=== PATIENT | male | born 1995 | race Caucasian/White ===

== ENCOUNTER 2020-07-26 07:45 | Emergency (ER) | payer OTHER ==
[~2020-07-26] VITALS: Ht 182.9 cm; Wt 156.4 kg
[2020-07-26] MEDS ORDERED: METH54TA2 PO (07:54)
[2020-07-26] MEDS ORDERED: TETRACAINE 0.5% OPHTH SOLN 4ML OS ONE (08:10)
[2020-07-26] MEDS ORDERED: FLUORESCEIN OPHTH 1 MG STRIP OS ONE (08:10)
[2020-07-26] MEDS ORDERED: PREDOPD OS (09:33)
[2020-07-26] MEDS ORDERED: BETI1SOL OS (09:33)
[2020-07-26 09:41] VITALS: BP 150/80
== END 2020-07-26 10:27 | disposition home or self-care (01) ==
LOC: M ED 07:45
DX: H21.02 Hyphema, left eye (principal); H20.012 Primary iridocyclitis, left eye; F90.9 Attention-deficit hyperactivity disorder, unspecified type; Z79.899 Other long term (current) drug therapy